=== PATIENT | male | born 1980 | race Caucasian/White ===

== ENCOUNTER 2018-10-17 11:05 | Emergency (ER) | payer SELFPAY ==
[2018-10-17] MEDS: IBUPROFEN 800 MG TAB PO (13:54)
== END 2018-10-17 16:02 | disposition home or self-care (01) ==
LOC: FTE 11:05
DX: S80.212A Abrasion, left knee, initial encounter (principal); F17.210 Nicotine dependence, cigarettes, uncomplicated; S60.512A Abrasion of left hand, initial encounter; V13.4XXA Pedal cycle driver injured in collision with car, pick-up truck or van in traffic accident, initial encounter
CPT/HCPCS: 29125; 73110-LT; 73130-LT; 73562; 99284-25